=== PATIENT | female | born 1985 | race Caucasian/White ===

== ENCOUNTER 2021-10-08 13:12 | Emergency (ER) | payer OTHER ==
[2021-10-08 13:52] LABS: #Monocytes 0.5 10x3/uL (0.0-1.1); #Neutrophils 12.6 10x3/uL (1.5-8.4); %Basophils 0.3 % (0.0-2.0); %Eosinophils 0.2 % (0.0-6.0); %Monocytes 3.6 % (0.0-10.0); %Neutrophils 83.4 % (40.0-75.0); Hemoglobin 11.8 g/dL (12.0-15.5); Mean Corpuscular HGB CONC 32.4 g/dL (32.0-36.0); Mean Corpuscular Hemoglobin 27.6 pg (27.0-33.0); Mean Corpuscular Volume 85.2 fl (81.6-98.3); Mean Platelet Volume 10.4 fl (7.4-10.4); Platelet Count 297 10x3/uL (150-450); RBC Distribution Width 14.5 % (11.5-14.5); Red Blood Cell (RBC) Count 4.27 10x6/uL (3.90-5.03); White Blood Cell (WBC) Count 15.1 10x3/uL (3.5-10.5)
[2021-10-08 14:17] LABS: ALT (SGPT) 10 U/L (8-55); AST (SGOT) 13 U/L (5-34); Albumin 4.1 g/dL (3.5-5.0); Alkaline Phosphatase 60 U/L (40-110); Anion Gap 14 mmol/L (10-20); BUN (Urea Nitrogen) 7 mg/dL (7.0-18.7); Bilirubin, Total 0.7 mg/dL (0.2-1.2); Calc. Creatinine Clearance 0 mL/min (70-130); Calcium 9.1 mg/dL (7.8-10.44); Carbon Dioxide 21 mmol/L (22-29); Chloride 104 mmol/L (98-107); Globulin 3.8 g/dL (2.4-3.5); Glucose 139 mg/dL (70-105); Potassium 3.7 mmol/L (3.5-5.1); Protein, Total 7.9 g/dL (6.0-8.3); Sodium 135 mmol/L (136-145)
[2021-10-08] MEDS ORDERED: Prochlorperazine 10 MG/2 ML VIAL ONE (17:59)
[2021-10-08] MEDS ORDERED: diphenhydrAMINE 50 MG/ML VIAL ONE (18:02)
[2021-10-08 18:15] LABS: Bilirubin Neg (Negative); Blood, Urine Negative (Negative); Clarity Clear (Clear); Glucose, Urine (Dipstick) Normal (Negative); Ketone, Urine Negative (Negative); Leukocyte 25 (Negative); Nitrite Negative (Negative); Protein, Urine (Dipstick) Negative (Neg-Trace); Urobilinogen Normal mg/dL (Less than 2)
[2021-10-08 18:47] LABS: RBC/HPF None Seen HPF (0-3); WBC/HPF 0-3 HPF (0-3)
[2021-10-08 18:48] LABS: Bacteria/HPF 1+ HPF (None Seen); Mucous/LPF Rare LPF (<2+)
[2021-10-08] MEDS ORDERED: Magnesium 2 GM/50 ML BAG (IN WATER) ONE (20:30)
== END 2021-10-08 22:26 | disposition home or self-care (01) ==
LOC: CSHERS 13:12
DX: O99.351 Diseases of the nervous system complicating pregnancy, first trimester (principal); G43.909 Migraine, unspecified, not intractable, without status migrainosus; O23.41 Unspecified infection of urinary tract in pregnancy, first trimester; N39.0 Urinary tract infection, site not specified; O99.111 Other diseases of the blood and blood-forming organs and certain disorders involving the immune mechanism complicating pregnancy, first trimester; D72.829 Elevated white blood cell count, unspecified; O24.111 Pre-existing type 2 diabetes mellitus, in pregnancy, first trimester; Z3A.09 9 weeks gestation of pregnancy
CPT/HCPCS: 36415; 76815; 80053; 81003; 81015; 84702; 85025; 87086; 96365; 96375; J0780; J1200; J3475

== ENCOUNTER 2021-10-11 04:36 | Emergency (ER) | payer OTHER | END 2021-10-11 06:12 | disposition home or self-care (01) | LOC: CSHERS 04:36 | DX: O20.9 Hemorrhage in early pregnancy, unspecified (principal); O34.81 Maternal care for other abnormalities of pelvic organs, first trimester; N83.201 Unspecified ovarian cyst, right side; O99.891 Other specified diseases and conditions complicating pregnancy; R82.71 Bacteriuria; O99.281 Endocrine, nutritional and metabolic diseases complicating pregnancy, first trimester; E11.9 Type 2 diabetes mellitus without complications; Z3A.09 9 weeks gestation of pregnancy ==

== ENCOUNTER 2022-04-11 16:53 | Inpatient (IN) | payer OTHER ==
[2022-04-11] MEDS ORDERED: Promethazine HCl 25 MG/ML VIAL IM PRN ×2 (17:04→19:58)
[2022-04-11] MEDS ORDERED: Ondansetron PF 4 MG/2 ML Vial IVP PRN ×2 (17:04→19:58)
[2022-04-11] MEDS ORDERED: Bicitra 30 ML UDCUP PO PRN (17:04)
[2022-04-11] MEDS ORDERED: Famotidine/PF 20 mg/2ml Vial SLOW IVP PRN (17:04)
[2022-04-11] MEDS ORDERED: Clindamycin/D5W 900 MG in Premix Bag 1 BAG IVPB SCH (17:04)
[2022-04-11] MEDS: Lactated Ringer's 1,000 ML IV SCH (17:29)
[2022-04-11] MEDS ORDERED: ceFAZolin 2 GM/Dextrose 50 ML IVPB ONE (17:30)
[2022-04-11] MEDS ORDERED: Bicitra 30 ML UDCUP ONE (17:31)
[2022-04-11 17:32] LABS: Hemoglobin 10.1 g/dL (12.0-15.5); Mean Corpuscular HGB CONC 32.6 g/dL (32.0-36.0); Mean Corpuscular Hemoglobin 25.2 pg (27.0-33.0); Mean Corpuscular Volume 77.3 fl (81.6-98.3); Mean Platelet Volume 11.4 fl (7.4-10.4); Platelet Count 295 10x3/uL (150-450); RBC Distribution Width 13.5 % (11.5-14.5); Red Blood Cell (RBC) Count 4.01 10x6/uL (3.90-5.03); White Blood Cell (WBC) Count 9.9 10x3/uL (3.5-10.5)
[2022-04-11 17:33] VITALS: BMI 35.3
[2022-04-11] MEDS ORDERED: Morphine PF 10 MG/10 ML VIAL ONE (17:54)
[2022-04-11] MEDS ORDERED: Phenylephrine 40 MG/NS 250 ML 250 ML ONE (17:55)
[2022-04-11] MEDS ORDERED: Oxytocin 10 UNITS/ML VIAL ONE ×2 (17:55→18:44)
[2022-04-11] MEDS ORDERED: Dexamethasone 4 mg/ml Vial ONE (17:55)
[2022-04-11] MEDS ORDERED: Ondansetron PF 4 MG/2 ML Vial ONE (17:55)
[2022-04-11 18:09] LABS: Syphilis Antibody Nonreactive (Nonreactive); Syphilis Antibody Index 0.04 S/CO (<1.00 Non-Reactive)
[2022-04-11 18:10] LABS: HBSAg Index 0.13 S/CO (0-0.99); HIV (1/2) Antibody/Antigen Non-Reactive (NonReactive); HIV 1/2 INDEX 0.07 S/CO (<1.00); Hep B Surf Ag Non-Reactive S/CO (NonReactive)
[2022-04-11] MEDS ORDERED: ePHEDrine Sulfate 50 MG/10 ML VIAL ONE (18:28)
[2022-04-11] MEDS ORDERED: Naloxone HCl 0.4 mg/ml Vial IV PRN (19:58)
[2022-04-11] MEDS ORDERED: Ketorolac Tromethamine 30 MG/ML VIAL IVP PRN (19:58)
[2022-04-11] MEDS ORDERED: diphenhydrAMINE 50 MG/ML VIAL IVP PRN (19:58)
[2022-04-11] MEDS ORDERED: diphenhydrAMINE 25 MG CAP PO PRN (19:58)
[2022-04-11] MEDS ORDERED: Zolpidem Tartrate 5 MG TAB PO PRN (19:58)
[2022-04-11] MEDS ORDERED: diphenhydrAMINE 50 MG/ML VIAL IM PRN (19:58)
[2022-04-11] MEDS ORDERED: Ondansetron HCl/PF 4 MG/2 ML Vial IVP PRN (19:58)
[2022-04-11] MEDS ORDERED: Communication Order-Pharmacy FS SCH (20:00)
[2022-04-11] MEDS ORDERED: Ketorolac Tromethamine 30 MG/ML VIAL IVP SCH (20:00)
[2022-04-11] MEDS: fentaNYL Citrate/PF 1,000 MCG in Sodium Chloride 0.9% 30 ML IV PRN (20:08)
[2022-04-11] MEDS: hydrALAZINE 20 MG/ML VIAL SLOW IVP PRN (21:41)
[2022-04-11 23:31] LABS: SARS-CoV-2 NAA Rapid Test Not Detected (NotDetected)
[2022-04-12] MEDS ORDERED: Magnesium Sulfate 20 gm/500 ml 20 GM/500 ML BAG ONE (00:41)
[2022-04-12] MEDS: hydrALAZINE 20 MG/ML VIAL SLOW IVP PRN (00:45)
[2022-04-12] MEDS ORDERED: Calcium Gluc 4.6 MEQ/10 ML (100 MG/ML) SLOW IVP PRN (01:28)
[2022-04-12] MEDS ORDERED: Labetalol HCl 100 MG/20 ML VIAL SLOW IVP PRN ×2 (01:28)
[2022-04-12] MEDS ORDERED: hydrALAZINE 20 MG/ML VIAL SLOW IVP PRN ×3 (01:28→06:30)
[2022-04-12] MEDS ORDERED: Lorazepam 2 MG/ML VIAL SLOW IVP PRN (01:28)
[2022-04-12] MEDS ORDERED: Magnesium Sulfate 20 gm/500 ml 20 GM/500 ML BAG IVPB SCH (01:30)
[2022-04-12] MEDS: fentaNYL Citrate/PF 1,000 MCG in Sodium Chloride 0.9% 30 ML IV PRN ×2 (03:53→14:32)
[2022-04-12] MEDS ORDERED: NS w/ Oxytocin 30 units 500 ML IV SCH (06:30)
[2022-04-12] MEDS ORDERED: Misoprostol 200 MCG TAB PR PRN (06:30)
[2022-04-12] MEDS ORDERED: diphenhydrAMINE 25 MG CAP PO PRN (06:30)
[2022-04-12] MEDS ORDERED: Promethazine HCl 25 MG/ML VIAL IM PRN (06:30)
[2022-04-12] MEDS ORDERED: Simethicone Chewable 80 MG TAB PO PRN (06:30)
[2022-04-12] MEDS ORDERED: Ondansetron PF 4 MG/2 ML Vial IVP PRN (06:30)
[2022-04-12] MEDS ORDERED: Boostrix 0.5 ML (Tdap) VIAL IM ONE (06:30)
[2022-04-12] MEDS ORDERED: Methylergonovine 0.2 MG/ML VIAL IM PRN (06:30)
[2022-04-12] MEDS ORDERED: Bisacodyl 10 MG SUPP PR PRN (06:30)
[2022-04-12] MEDS ORDERED: Lanolin Ointment 7 GM TUBE TOP PRN (06:30)
[2022-04-12] MEDS ORDERED: Ibuprofen 800 MG TAB PO SCH (06:45)
[2022-04-12] MEDS: Lactated Ringer's 1,000 ML IV SCH ×3 (08:20→20:35)
[2022-04-12] MEDS ORDERED: Labetalol HCl 100 MG TAB PO SCH ×2 (09:00→09:30)
[2022-04-12] MEDS: Ibuprofen 800 MG TAB PO SCH ×2 (09:03→21:26)
[2022-04-12] MEDS: Prenatal Vitamin 1 TAB PO SCH (09:03)
[2022-04-12 09:19] LABS: Hemoglobin 8.4 g/dL (12.0-15.5); Mean Corpuscular HGB CONC 32.6 g/dL (32.0-36.0); Mean Corpuscular Volume 76.8 fl (81.6-98.3); Mean Platelet Volume 11.2 fl (7.4-10.4); Platelet Count 240 10x3/uL (150-450); RBC Distribution Width 13.6 % (11.5-14.5); Red Blood Cell (RBC) Count 3.36 10x6/uL (3.90-5.03); White Blood Cell (WBC) Count 16.5 10x3/uL (3.5-10.5)
[2022-04-12] MEDS: Docusate 100 MG CAP PO SCH ×2 (14:57→21:25)
[2022-04-12] MEDS: Ferrous Sulfate 325 MG TAB PO SCH ×2 (14:58→21:25)
[2022-04-12] MEDS: Labetalol HCl 100 MG TAB PO SCH (21:25)
[2022-04-13] MEDS: Lactated Ringer's 1,000 ML IV SCH ×4 (03:34→22:55)
[2022-04-13 05:00] LABS: Hemoglobin 7.5 g/dL (12.0-15.5); Mean Corpuscular HGB CONC 32.3 g/dL (32.0-36.0); Mean Corpuscular Hemoglobin 25.3 pg (27.0-33.0); Mean Corpuscular Volume 78.4 fl (81.6-98.3); Platelet Count 222 10x3/uL (150-450); RBC Distribution Width 13.8 % (11.5-14.5); Red Blood Cell (RBC) Count 2.96 10x6/uL (3.90-5.03)
[2022-04-13] MEDS: Ibuprofen 800 MG TAB PO SCH ×3 (05:46→21:47)
[2022-04-13] MEDS: Docusate 100 MG CAP PO SCH ×2 (09:20→21:46)
[2022-04-13] MEDS: Ferrous Sulfate 325 MG TAB PO SCH ×2 (09:20→21:46)
[2022-04-13] MEDS: Prenatal Vitamin 1 TAB PO SCH (09:20)
[2022-04-13] MEDS: Labetalol HCl 100 MG TAB PO SCH ×2 (09:21→21:47)
[2022-04-13] MEDS: HYDROcodone/Acetaminophen 5/325 mg Tablet PO PRN ×3 (11:22→22:54)
[2022-04-14] MEDS: Ibuprofen 800 MG TAB PO SCH ×3 (05:50→22:05)
[2022-04-14] MEDS: Lactated Ringer's 1,000 ML IV SCH (06:37)
[2022-04-14] MEDS: Ferrous Sulfate 325 MG TAB PO SCH ×2 (09:05→22:06)
[2022-04-14] MEDS: Prenatal Vitamin 1 TAB PO SCH (09:05)
[2022-04-14] MEDS: Docusate 100 MG CAP PO SCH ×2 (09:05→22:05)
[2022-04-14] MEDS: Labetalol HCl 100 MG TAB PO SCH ×2 (09:05→22:07)
[2022-04-14] MEDS: HYDROcodone/Acetaminophen 5/325 mg Tablet PO PRN (12:43)
[2022-04-15] MEDS: Lactated Ringer's 1,000 ML IV SCH ×4 (01:24→14:53)
[2022-04-15] MEDS: Ibuprofen 800 MG TAB PO SCH ×2 (05:05→14:57)
[2022-04-15] MEDS: HYDROcodone/Acetaminophen 5/325 mg Tablet PO PRN ×3 (05:06→18:50)
[2022-04-15] MEDS: Docusate 100 MG CAP PO SCH (09:11)
[2022-04-15] MEDS: Labetalol HCl 100 MG TAB PO SCH (09:11)
[2022-04-15] MEDS: Ferrous Sulfate 325 MG TAB PO SCH (09:11)
[2022-04-15] MEDS: Prenatal Vitamin 1 TAB PO SCH (09:11)
[2022-04-15 12:50] VITALS: BP 116/57; TEMP 98.2
== END 2022-04-15 19:00 | disposition home or self-care (01) | DRG 786 ==
LOC: CSHLD 16:53 → CSHPP 23:55 → CSHLD 04-12 00:56 → CSHPP 04-12 13:55
PROVIDERS: ADMIT Obstetrics & Gynecology; ATTEND Obstetrics & Gynecology
PROC: 10D00Z1 Extraction of Products of Conception, Low, Open Approach (ICD-10-PCS; principal; 2022-04-11)
PROC: 0UB20ZZ Excision of Bilateral Ovaries, Open Approach (ICD-10-PCS; 2022-04-11)
DX: O60.14X0 Preterm labor third trimester with preterm delivery third trimester, not applicable or unspecified (principal); O24.12 Pre-existing type 2 diabetes mellitus, in childbirth; O99.354 Diseases of the nervous system complicating childbirth; Z3A.36 36 weeks gestation of pregnancy; Z37.0 Single live birth; G43.909 Migraine, unspecified, not intractable, without status migrainosus; F31.9 Bipolar disorder, unspecified; O99.344 Other mental disorders complicating childbirth; O90.81 Anemia of the puerperium; D64.9 Anemia, unspecified; O13.4 Gestational [pregnancy-induced] hypertension without significant proteinuria, complicating childbirth; N83.202 Unspecified ovarian cyst, left side; O34.83 Maternal care for other abnormalities of pelvic organs, third trimester; Z20.822 Contact with and (suspected) exposure to COVID-19; N83.201 Unspecified ovarian cyst, right side; O99.824 Streptococcus B carrier state complicating childbirth; Z86.16 Personal history of COVID-19; Z79.899 Other long term (current) drug therapy; Z79.84 Long term (current) use of oral hypoglycemic drugs; Z88.0 Allergy status to penicillin
CPT/HCPCS: 51702; 85027; 86780; 86850; 86900; 86901; 87340; 87389; 88305; J0360; J0690; J1100; J2274; J2405; J2590; J3010; J3475; J3490; J7120; S0028; U0002

== ENCOUNTER 2022-07-24 11:19 | Emergency (ER) | payer OTHER ==
[2022-07-24] MEDS ORDERED: Ondansetron PF 4 MG/2 ML Vial ONE (12:43)
[2022-07-24] MEDS ORDERED: Ketorolac Tromethamine 30 MG/ML VIAL ONE (12:43)
[2022-07-24 13:09] LABS: #Monocytes 0.6 10x3/uL (0.0-1.1); #Neutrophils 5.6 10x3/uL (1.5-8.4); %Basophils 0.4 % (0.0-2.0); %Eosinophils 0.3 % (0.0-6.0); %Lymphocytes 19.3 % (18.0-47.0); %Monocytes 7.6 % (0.0-10.0); %Neutrophils 71.8 % (40.0-75.0); Hemoglobin 10.1 g/dL (12.0-15.5); Mean Corpuscular HGB CONC 31.3 g/dL (32.0-36.0); Mean Corpuscular Hemoglobin 23.9 pg (27.0-33.0); Mean Corpuscular Volume 76.4 fl (81.6-98.3); Mean Platelet Volume 10.5 fl (7.4-10.4); Platelet Count 257 10x3/uL (150-450); RBC Distribution Width 16.5 % (11.5-14.5); Red Blood Cell (RBC) Count 4.23 10x6/uL (3.90-5.03); White Blood Cell (WBC) Count 7.9 10x3/uL (3.5-10.5)
[2022-07-24 13:17] LABS: BHCG - Serum Negative (NEGATIVE); Pregs Control Background? CLEAR/WHITE (CLR/WHITE); Pregs Control Bar Appear? YES (CONTROL BAR)
[2022-07-24 13:28] LABS: ALT (SGPT) 41 U/L (8-55); AST (SGOT) 24 U/L (5-34); Albumin 3.7 g/dL (3.5-5.0); Alkaline Phosphatase 86 U/L (40-110); Anion Gap 11 mmol/L (10-20); BUN (Urea Nitrogen) 11 mg/dL (7.0-18.7); Bilirubin, Total 1.1 mg/dL (0.2-1.2); Calc. Creatinine Clearance 0 mL/min (70-130); Calcium 8.4 mg/dL (7.8-10.44); Carbon Dioxide 22 mmol/L (22-29); Chloride 104 mmol/L (98-107); Estimated GFR 116; Globulin 3.3 g/dL (2.4-3.5); Glucose 103 mg/dL (70-105); Lipase 53 U/L (8-78); Magnesium 1.6 mg/dL (1.6-2.6); Potassium 3.7 mmol/L (3.5-5.1); Sodium 133 mmol/L (136-145)
[2022-07-24 13:39] LABS: Bilirubin Neg (Negative); Blood, Urine Negative (Negative); Clarity Clear (Clear); Glucose, Urine (Dipstick) Normal (Negative); Ketone, Urine Negative (Negative); Leukocyte Negative (Negative); Nitrite Negative (Negative); Protein, Urine (Dipstick) 15 mg/dl (Neg-Trace); Urobilinogen Normal mg/dL (Less than 2)
== END 2022-07-24 15:54 | disposition home or self-care (01) ==
LOC: CSHERS 11:19
DX: K52.9 Noninfective gastroenteritis and colitis, unspecified (principal); E11.9 Type 2 diabetes mellitus without complications
CPT/HCPCS: 74177; 80053; 81003; 83690; 83735; 84703; 85025; 96374; 96375; J1885; J2405

== ENCOUNTER 2022-11-01 07:05 | Day surgery (SDC) | payer OTHER ==
[2022-10-31 10:43] VITALS: BMI 35.0
[2022-11-01] MEDS ORDERED: Acetaminophen 500 MG TAB ONE (07:13)
[2022-11-01] MEDS ORDERED: Neomycin-Polymyxin 1 ML AMP ONE (08:17)
[2022-11-01] MEDS ORDERED: Bupivacaine 0.25% HCL 30 ML VIAL ONE (08:17)
[2022-11-01] MEDS ORDERED: CEFAZOLIN 2 GM VIAL ONE (09:35)
[2022-11-01] MEDS ORDERED: PROPOFOL 20 ML ONE (09:46)
[2022-11-01] MEDS ORDERED: Fentanyl 100 MCG/2 ML VIAL ONE ×2 (09:47→11:06)
[2022-11-01] MEDS ORDERED: Midazolam HCl 2 mg/2 ml Vial ONE (09:47)
[2022-11-01] MEDS ORDERED: Rocuronium Bromide 10 MG/ML (10ML VIAL) ONE (09:47)
[2022-11-01] MEDS ORDERED: Ondansetron PF 4 MG/2 ML Vial ONE (09:47)
[2022-11-01] MEDS ORDERED: Dexamethasone 4 mg/ml Vial ONE (09:47)
[2022-11-01] MEDS ORDERED: Glycopyrrolate 0.2 MG/ML 5 ML SYRINGE ONE (10:12)
[2022-11-01] MEDS ORDERED: PHENYLEPHRINE-NS 100 MCG/ML 10 ML SYRINGE ONE (10:12)
[2022-11-01] MEDS ORDERED: SUGAMMADEX SODIUM 200 MG/2 ML VIAL ONE (11:37)
[2022-11-01] MEDS ORDERED: HYDROcodone/Acetaminophen 7.5/325 mg Tablet ONE (12:45)
== END 2022-11-01 15:15 | disposition home or self-care (01) ==
LOC: CSHSDC 07:05
PROVIDERS: ATTEND Obstetrics & Gynecology
PROC: 0JQB0ZZ Repair Perineum Subcutaneous Tissue and Fascia, Open Approach (ICD-10-PCS; principal; 2022-11-01)
DX: N82.3 Fistula of vagina to large intestine (principal); E11.9 Type 2 diabetes mellitus without complications; F31.9 Bipolar disorder, unspecified; G43.909 Migraine, unspecified, not intractable, without status migrainosus; Z79.899 Other long term (current) drug therapy; Z88.0 Allergy status to penicillin
CPT/HCPCS: J1100; J2250; J2405; J2704; J3010; S0020

== ENCOUNTER 2024-09-01 18:06 | Emergency (ER) | payer OTHER, SELFPAY ==
[2024-09-01] MEDS ORDERED: diphenhydrAMINE 50 MG/ML VIAL ONE (18:58)
[2024-09-01] MEDS ORDERED: Ketorolac Tromethamine 30 MG (1 mL) VIAL ONE (18:59)
[2024-09-01] MEDS ORDERED: Metoclopramide HCl 10 MG (2 mL) VIAL ONE (18:59)
== END 2024-09-01 21:27 | disposition home or self-care (01) ==
LOC: CSHERS 18:06
DX: G43.909 Migraine, unspecified, not intractable, without status migrainosus (principal); E11.9 Type 2 diabetes mellitus without complications; Z55.0 Illiteracy and low-level literacy
CPT/HCPCS: 96361; 96374; 96375; J1200; J1885; J2765

== ENCOUNTER 2024-12-09 16:25 | Emergency (ER) | payer BC ==
[2024-12-09] MEDS ORDERED: Dexamethasone 10 MG/ML VIAL ONE (17:03)
[2024-12-09] MEDS ORDERED: Ketorolac Tromethamine 30 MG (1 mL) VIAL ONE (17:03)
[2024-12-09] MEDS ORDERED: diphenhydrAMINE 50 MG/ML VIAL ONE (17:03)
[2024-12-09] MEDS ORDERED: Metoclopramide HCl 10 MG (2 mL) VIAL ONE (17:03)
== END 2024-12-09 18:56 ==
LOC: CSHERS 16:25
DX: G43.909 Migraine, unspecified, not intractable, without status migrainosus (principal); R29.700 NIHSS score 0; E11.9 Type 2 diabetes mellitus without complications
CPT/HCPCS: 96365; 96366; 96375; J1100; J1200; J1885; J2765